=== PATIENT | male | born 1960 | race Caucasian/White ===

== ENCOUNTER 2021-02-03 20:04 | Emergency (ER) | payer OTHER ==
[2021-02-03] MEDS ORDERED: Aspirin Chewable 81 MG TAB ONE (22:34)
== END 2021-02-04 11:11 | disposition short-term general hospital (02) ==
LOC: CSHERS 20:04
DX: I63.9 Cerebral infarction, unspecified (principal); E03.9 Hypothyroidism, unspecified; E78.5 Hyperlipidemia, unspecified; E78.00 Pure hypercholesterolemia, unspecified; J45.909 Unspecified asthma, uncomplicated; G40.909 Epilepsy, unspecified, not intractable, without status epilepticus; Z86.73 Personal history of transient ischemic attack (TIA), and cerebral infarction without residual deficits; Z79.82 Long term (current) use of aspirin; Z79.899 Other long term (current) drug therapy
CPT/HCPCS: 36416; 70450; 80053; 84484; 85025; 85610; 85730; 93005